=== PATIENT | male | born 1995 | race Two or more races ===

== ENCOUNTER 2022-02-06 12:57 | Emergency (ER) | payer SELFPAY ==
[~2022-02-06] VITALS: Ht 170.2 cm; Wt 77.0 kg
[2022-02-06 12:59] VITALS: BP 94/43
[2022-02-06] MEDS ORDERED: LIDOCAINE 1%HCL (LOCAL ANESTH) 10 ML MDV ONE (16:10)
[2022-02-06] MEDS ORDERED: LIDOCAINE 1% HCL (LOCAL ANESTH.) INJ 20ML MDV ID ONE (16:15)
[2022-02-06] MEDS ORDERED: AMOXICILLIN/CLAVUL 875 MG TAB PO ONE (17:00)
[2022-02-06] MEDS ORDERED: TETANUS-DIPTH-ACEL PERTUSSIS 0.5ML SYR Tdap IM ONE (17:00)
[2022-02-06] MEDS ORDERED: HYDROcodone-ACET 5/325MG TAB PO ONE (17:00)
[2022-02-06] MEDS ORDERED: AMOX500T86 PO (17:03)
[2022-02-06] MEDS ORDERED: DICL50TA2 PO (17:03)
== END 2022-02-06 18:51 | disposition home or self-care (01) ==
LOC: ER 12:57
DX: S61.210A Laceration without foreign body of right index finger without damage to nail, initial encounter (principal); V28.4XXA Motorcycle driver injured in noncollision transport accident in traffic accident, initial encounter; Y93.89 Activity, other specified; Y92.89 Other specified places as the place of occurrence of the external cause; Y99.8 Other external cause status
CPT/HCPCS: 12004; 73130; 99283; J2001